=== PATIENT | female | born 1965 | race Two or more races ===

== ENCOUNTER 2025-04-02 15:39 | Emergency (ER) | payer BC, OTHER, SELFPAY ==
[2025-04-02 15:40] VITALS: BMI 24.0
[2025-04-02 16:14] VITALS: BP 109/69; PULSE 89; RESP 18; TEMP 36.9; O2SAT 99
--- NOTE | 2025-04-02 16:17 | XR_ITS ---
Examination: Abdomen sonogram, Limited Date and time of exam: April 02, 2025, 1639 hours INDICATIONS: Upper abdominal pain and nausea beginning several months ago Technique: Real-time parker scale transabdominal sonographic images of the upper abdomen obtained. Findings: Multiple gallstones. Gallbladder wall 0.3 cm Common bile duct 0.4 cm Pancreatic head 1.3 cm. Liver 14.0 cm fatty infiltration no focal liver lesions. Normal hepatopedal portal venous flow. Patent IVC. IMPRESSION: Cholelithiasis, negative for cholecystitis
--- NOTE | 2025-04-02 16:20 | PD.EDRME ---
Rapid Medical Screening Exam E Arrival date/time: 04/02/25 15:39 59-year-old female with no known medical history presents to the emergency room with a chief complaint of 10 out of 10 right upper quadrant abdominal pain and tenderness x 3 days. Patient was sent over by her primary care provider to rule her cholecystitis I have greeted and performed a focused initial assessment of this patient. A comprehensive ED assessment and evaluation of the patient, analysis of all test results, and completion of the medical decision making process will be conducted by additional ED providers. Chief Complaint: Abdominal Pain Time Seen by Provider: 04/02/25 15:48 Vital signs: Vital Signs Temperature 98.5 F 04/02/25 16:14 Pulse Rate 89 04/02/25 16:14 Respiratory Rate 18 04/02/25 16:14 Blood Pressure 109/69 04/02/25 16:14 Pulse Oximetry (%) 99 04/02/25 16:14 Oxygen Delivery Method Room Air 04/02/25 16:14 Vital signs reviewed by provider: Yes
[2025-04-02] MEDS: HYDROcodone/APAP 5/325 TABLET 1 TAB PO (16:51)
[2025-04-02] MEDS: ONDANSETRON ODT 4 MG TABRAP PO (16:51)
[2025-04-02 17:03] LABS: Collection Type, Urine Clean Catch
[2025-04-02 17:09] LABS: Basophils # (Auto) 0.1 Thou/mm3 (0.0-0.2); Basophils % (Auto) 1 % (0-2.5); Eosinophils # (Auto) 0.1 Thou/mm3 (0.0-0.5); Eosinophils % (Auto) 1 % (0-10); Hematocrit 38.2 % (36.0-46.0); Hemoglobin 12.6 g/dL (12.0-16.0); Immature Granulocytes Auto 0.01 Thou/mm3 (0.00-0.00); Lymphocytes # (Auto) 1.6 Thou/mm3 (1.0-4.8); Lymphocytes % (Auto) 29 % (10-50); Mean Corpuscular HGB Conc 33.0 g/dl (31.0-37.0); Mean Corpuscular Hemoglobin 29.4 pg (25.0-35.0); Mean Corpuscular Volume 89 fL (80-100); Monocytes # (Auto) 0.6 Thou/mm3 (0.0-0.8); Monocytes % (Auto) 11 % (0-12); Neutrophils # (Auto) 3.2 Thou/mm3 (1.8-7.7); Neutrophils % (Auto) 58 % (37-80); Nucleated Red Blood Cell # 0.00 Thou/mm3 (0.00-0.00); Nucleated Red Blood Cell % 0 /100 WBC (0); Platelet Count 299 Thou/mm3 (140-440); RDW Standard Deviation 44.7 fL (36.4-46.3); Red Blood Count 4.29 Miln/mm3 (4.00-5.20); White Blood Count 5.6 Thou/mm3 (3.6-11.0)
[2025-04-02 17:24] LABS: Bacteria,Urine Rare; Bilirubin,Urine Negative (Negative); Blood,Urine Negative (Negative); Clarity,Urine Clear (Clear/Hazy); Color,Urine Yellow (Lt Yel-Yel); Glucose, Urine Negative (Negative); Ketones,Urine Negative (Negative); Leukocyte Esterase,Urine Negative (Negative); Nitrite,Urine Negative (Negative); PH,Urine 5.5 (5.0-7.0); Protein,Urine Negative (Neg - Trace); RBC,Urine 1 /hpf (0-3); Specific Gravity,Urine 1.025 (1.001-1.035); Squamous Epithelial Cell,Urine < 1 /hpf (0-5); Urobilinogen,Urine Negative mg/dL (0.0-1.0); WBC,Urine 1 /hpf (0-5)
[2025-04-02 17:28] LABS: HCG Qualitative,Urine Negative
[2025-04-02 17:38] LABS: Albumin, Serum 4.4 gm/dL (3.5-5.0); Albumin/Globulin Ratio 1.5 (1.2-2.2); Alkaline Phosphatase 214 U/L (46-116); Anion Gap 8 (7-16); BUN/Creatinine Ratio 14 Ratio (12-20); Bilirubin,Total 1.4 mg/dL (0.3-1.2); Blood Urea Nitrogen 11 mg/dL (9-23); Calcium 10.3 mg/dL (8.3-10.6); Calcium (Corrected) 10.3 mg/dL (8.5-10.1); Carbon Dioxide 28.2 mMol/L (20.0-31.0); Chloride 106 mMol/L (98-107); Creatinine (Component) 0.8 mg/dL (0.6-1.3); Estimated Creatinine Clearance 66.9 mL/min (>60); Globulin 2.9 gm/dL (2.3-3.5); Glucose 105 mg/dL (74-106); Lipase 42 U/L (12-53); Osmolality,Calculated 282 (275-295); Potassium 4.4 mMol/L (3.4-5.1); Sodium 142 mMol/L (136-145); Total Protein 7.3 gm/dL (5.7-8.2); eGFR > 60 See Note
[2025-04-02 18:00] LABS: Alanine Aminotransferase 874 U/L (10-49)
[2025-04-02 18:50] LABS: Aspartate Amino Transferase 3140 U/L (0-34)
--- NOTE | 2025-04-02 23:05 | EDNOTE_ITS ---
ED Abdominal Pain RME/HPI General Chief Complaint: Abdominal Pain Stated complaint: RUQ ABD PAIN; NAUSEA Time seen by provider: 04/02/25 15:48 Arrival date/time: 04/02/25 15:39 RME / HPI RME / HPI narrative: 04/02/25 15:39 59-year-old female with no known medical history presents to the emergency room with a chief complaint of 10 out of 10 right upper quadrant abdominal pain and tenderness x 3 days. Patient was sent over by her primary care provider to rule her cholecystitis I have greeted and performed a focused initial assessment of this patient. A comprehensive ED assessment and evaluation of the patient, analysis of all test results, and completion of the medical decision making process will be conducted by additional ED providers. Dr. Shah?s Main ED Evaluation: 59yo female with recurrent episode of RUQ pain described as aching with sharp component radiating to the right flank x 3 weeks. Episodes tend to worsen after eating. No reported fevers, chills, but did report sporadic emesis. No diarrhea or dysuria. Patient has been fasting and has intentionally lost 40 pounds in the last several months. PMH unremarkable. PSH unremarkable. Social history unremarkable. Related Data Previous Rx's ?Medication ?Instructions ?Recorded hydrocodone 5 mg-acetaminophen 325 1 tab PO Q6H PRN pa in #12 tabs 04/03/25 mg tablet hydrocodone 5 mg-acetaminophen 325 1 tab PO Q8H PRN pa in #20 tabs 04/03/25 mg tablet hyoscyamine sulfate 0.125 mg 0.125 mg PO TID PRN cram ping #20 04/03/25 tablet (Levsin) tabs promethazine 12.5 mg tablet 12.5 mg PO TID PRN nausea and 04/03/25 vomiting #20 tabs Allergies Allergy/AdvReac Type Severity Reaction Status Date / Time No Known Allergies Allergy Verified 04/02/25 15:43 Review of Systems Review of Systems Systems Reviewed: All systems reviewed, normal except as documented Past Medical History Social History SMOKING STATUS: Never smoker ED Exam Narrative Physical exam: GENERAL APPEARANCE: alert and oriented x 4, well-developed, well-nourished, nontoxic, no acute distress VITALS: All vitals were reviewed and the pulse ox is 99% on room air, which is normal according to my interpretation. HEENT: Normocephalic, atraumatic; pupils equal, round, reactive to light; EOMI; mucous membranes pink, moist; oropharynx clear NECK: Supple LUNGS: CTABL; no wheezes, no rales, no rhonchi HEART: Regular rate, regular rhythm; normal S1, S2; no murmurs ABDOMEN: non distended; normal BS; soft, mild RUQ tenderness, no guarding, no rebound BACK: no CVA tenderness EXTREMITIES: atraumatic; no edema NEUROLOGIC: awake; alert and oriented x4; cranial nerves II-XII grossly intact; no focal sensory or motor deficits PSYCHIATRIC: appropriate mood and affect SKIN: warm, dry, normal color; no rashes Course Quality Measures none Orders Category Date Time Status US gall bladder Stat Exams 04/02/25 16:17 Completed CBC Stat Lab 04/02/25 16:30 Completed CMP [Comprehensive Metabolic Panel] Stat Lab 04/02/25 16:30 Completed HCG Qualitative,Urine Stat Lab 04/02/25 16:45 Completed Lipase Stat Lab 04/02/25 16:30 Completed UA [Urinalysis] Stat Lab 04/02/25 16:45 Completed Urine Culture Stat Lab 04/02/25 16:45 Received HYDROcodone*/APAP 5/325 [Shirley 5/325] Med 04/02/25 16:17 Discontinued 1 tab PO X1 ONE Ondansetron Odt [Zofran Odt] Med 04/02/25 16:17 Discontinued 4 mg PO X1 ONE Vital Signs Vital signs: Vital Signs Temperature 98.5 F 04/02/25 16:14 Pulse Rate 89 04/02/25 16:14 Respiratory Rate 18 04/02/25 16:14 Blood Pressure 109/69 04/02/25 16:14 Pulse Oximetry (%) 99 04/02/25 16:14 Oxygen Delivery Method Room Air 04/02/25 16:14 Abdominal Pain MDM MDM Narrative MDM Narrative:: Scribe Attestation: 04/02/25 - Rody Jaimes am scribing for and in the presence of Dr. Shah. 59yo female with recurrent episode of RUQ pain described as aching with sharp component radiating to the right flank x 3 weeks. Episodes tend to worsen after eating. Please see PE findings. Lab markers demonstrate WBC count 5.6, no anemia or thrombocytopenia, no left shift. Chemistries remarkable for mildly elevated total bilirubin 1.4, markedly elevated AST 3140, ALT 874, Alkaline Phosphatase 214, Lipase normal. UA unremarkable. Patient administered oral narcotic analgesics/antiemetics and was referred for gallbladder US, which demonstrated multiple gallstones, upper limits of gallbladder wall thickening, fatty liver, consistent with cholelithiasis without cholecystitis. Patient is resting comfortably without abdominal pain and is considered stable for discharge. Recommend low fat diet, treating symptomatically, and outpatient surgical follow-up. Patient data External records reviewed:: [facility] previous records (Per chart review, patient has no previous ED visits or admissions to this facility.) Clinical information provided by:: patient Social determinants that could affect healthcare access:: none Patient has the following chronic illnesses:: none How is presenting disease/condition affected by chronic disease/condition?: no chronic disease Evaluation data The following diagnostics were reviewed and interpreted by me:: lab results and radiology exam(s) Lab and/or radiology exams considered but not ordered:: none Interpretation Summary: [facility] Report Signed Patient: LUKE RIVERA [facility]. Record#: [id number] Birthdate: 1965 Age/Sex: 59 / F Location: [facility] Attending Dr: Ordering Physician: Darrel Gallardo Date of Service: 04/02/25 Procedure(s): US gall bladder Accession Number(s): [id number] cc: Darrel Gallardo; Onesimo Mullins MD; NO PRIMARY/FAMILY,PHYSICIAN~ Examination: Abdomen sonogram, Limited Date and time of exam: April 02, 2025, 1639 hours INDICATIONS: Upper abdominal pain and nausea beginning several months ago Technique: Real-time parker scale transabdominal sonographic images of the upper abdomen obtained. Findings: Multiple gallstones. Gallbladder wall 0.3 cm Common bile duct 0.4 cm Pancreatic head 1.3 cm. Liver 14.0 cm fatty infiltration no focal liver lesions. Normal hepatopedal portal venous flow. Patent IVC. IMPRESSION: Cholelithiasis, negative for cholecystitis Dictated By: Onesimo Mullins MD Signed By: <Electronically signed by Onesimo Mullins MD in OV> 04/02/25 1729 Medications / Prescriptions Medications or Prescriptions considered but not ordered:: none Medication administrations:: Medication Administration History Discontinued Medications Hydrocodone Bitart/Acetaminophen (Hydrocodone/Apap 5/325 Tablet) 1 tab PO X1 ONE Stop: 04/02/25 16:18 Last Admin: 04/02/25 16:51 Dose: 1 tab Documented By: DO Ondansetron HCl (Ondansetron Odt 4 Mg Tabrap) 4 mg PO X1 ONE; Protocol Stop: 04/02/25 16:18 Last Admin: 04/02/25 16:51 Dose: 4 mg Documented By: DO see above Consultations Consultation(s) initiated? (list below): No Diagnosis Differential diagnosis abdominal pain: diverticulitis and other (cholelithiasis, choledocholithiasis, cholecystitis, gastritis) Most likely diagnosis given after review of the tests above:: see clinical impression below Admission Indicated Admission indicated?: not indicated Admission Request Was there a request for admission?: No Disposition Plan Disposition Plan: Discharge Discharge Attestation Discharge Attestation: The patient and all family members were given an opportunity to ask questions and understood the discharge instructions. Discharge instructions specifically effects, indications for sooner follow up or return to the emergency department, and the expected course of current diagnosis. Patient condition: Stable Discharge Plan Plan Patient Disposition: HOME (Self Care) Patient condition on transfer: Stable Prescriptions/Referrals Prescriptions/Med Rec: New hyoscyamine sulfate [Levsin] 0.125 mg tablet 0.125 mg PO TID PRN (Reason: cramping) Qty: 20 0RF promethazine 12.5 mg tablet 12.5 mg PO TID MDD 3 tab PRN (Reason: nausea and vomiting) Qty: 20 0RF hydrocodone-acetaminophen 5-325 mg tablet 1 tab PO Q8H MDD 3 tab PRN (Reason: pain) Qty: 20 0RF hydrocodone-acetaminophen 5-325 mg tablet 1 tab PO Q6H MDD max 4 tabs per day PRN (Reason: pain) Qty: 12 0RF Referrals: Michelle Aguila MD [Physician] - In 1 week (Patient with evidence of fatty liver and cholelithiasis with classic biliary colic type symptoms of recurrent nature- consider cholecystectomy.) No Primary/Family,Physician [Primary Care Provider] - In 1 week Problem List Clinical Impression: Cholelithiasis Patient/Caregiver Discharge Instructions Discharge Activity: activity as tolerated Diet Instructions: Low-fat diet Education Materials: ED Gallstones with Biliary Colic Additional Instructions: Low-fat diet. Medication as directed. Follow-up with general surgeon within 3 to 5 days for consideration of cholecystectomy. Return for fever vomiting escalating abdominal pain or worsening illness. Print Language: Chinese Stand Alone Forms: Julissa Award Info., Patient Portal Info Letter
[2025-04-03 00:47] VITALS: BP 111/70; PULSE 60; RESP 16; O2SAT 100
== END 2025-04-03 00:51 | disposition home or self-care (01) ==
PROVIDERS: Nurse Practitioner Family; Emergency Provider Emergency Medicine
DX: K80.10 Calculus of gallbladder with chronic cholecystitis without obstruction (principal)
CPT/HCPCS: 36415; 76705; 80053; 81001; 81025; 83690; 85025; 87086; 99283; Q0162; A9270